=== PATIENT | male | born 1975 | race Caucasian/White ===

== ENCOUNTER 2016-03-25 21:28 | Emergency (ER) | payer OTHER ==
[~2016-03-25] VITALS: Ht 182.9 cm; Wt 104.2 kg
[2016-03-25 21:34] VITALS: BP 152/95; PULSE 136; O2SAT 98
--- NOTE | 2016-03-25 22:37 | ED.REPORT ---
HPI-General Illness Date of Service Mar 25, 2016 ED Provider: Aguila Zepeda MD Patient is a 40 year old male with a history of alcohol abuse who presents to the ED in alcohol withdrawal, with his last drink at 2pm this afternoon. He presents to the ED hypertensive and tachycardic. The patient typically drinks 750mL of vodka daily. Patient has been a daily drinker since he was in college. He is currently unemployed and is unable to keep down a job. The patient has a known enlarged liver but denies alcoholic cirrhosis. He denies a history of pancreatitis or heart disease. Patient is a former smoker and he denies any drug abuse. Patient states that he feels generally unwell, shaky, nauseated, and that he is dehydrated. He patient has previously withdrawn from alcohol and has never had seizures in the past. Patient has previously been admitted to the hospital due to alcohol withdrawal, with this last admission this past summer at [facility]. He presented to [facility] today because he would to go to go to [facility] [place], as he has previously been to their facility and liked their care. He has spoken to his parents about coordinating for termite helper inpatient treatment after he has been through detox. Nursing Notes Stated Complaint: ALCOHOL WITHDRAWL Chief Complaint: Substance Abuse Nursing Notes Reviewed: Yes Allergies: Coded Allergies: No Known Allergies (Unverified , 03/25/16) Scheduled Ondansetron ODT (Ondansetron ODT) 8 Mg Tab.rapdis 8 MG PO QID General Time Seen by MD: 22:36 Chief Complaint Other (alcohol withdrawal) Hx Obtained From: Patient Arrived By: Walk-in Sudden in Onset?: No Onset Occurred: 9 - 12 hours ago Symptom Duration: Since onset Severity: Current: No pain currently Severity: Maximum: No pain Recent Healthcare: No recent doctor visit, No recent hospitalization Similar Sx Previous: Yes Past Medical History Past Medical History alcohol abuse Denies: Coronary artery disease Denies: Pancreatitis Past Surgical History none reported Smoking History Former Smoker Social History From [place] Alcohol Use: >5 per day Other Social History: Good social support, From out of town Ambulatory Status Independent Review of Systems + feels unwell Full Review of Systems GI: Reports: Nausea, Denies: Vomiting Neurologic: Reports: Shaking, Denies: Seizure Complete sys rev & neg: except as marked. Physical Exam Vital Signs Vital Signs Date Time Temp Pulse Resp B/P Pulse Ox O2 Delivery O2 Flow Rate FiO2 03/26/16 00:52 36.7 124 18 136/73 95 Room Air 03/26/16 00:35 124 18 136/73 95 Room Air 03/26/16 00:30 136/70 03/25/16 21:34 36.7 136 152/95 98 Room Air Initial VS: Reviewed Head / Eyes: Atraumatic, Normocephalic, PERRL ENT: Conjunctiva normal, No scleral icterus Neck: Supple, Full range of motion Respiratory: Breath sounds normal, Clear to auscultation, No respiratory distress Abdomen / GI: Soft, Non-tender, No guarding, No rebound Extremities: Vascular intact, Neuro intact, No swelling Skin: Warm, Dry, No cyanosis General/Constitutional: Awake, Alert, No acute distress Appearance / Presentation: Positive: Obese tremulous and hypertensive Cardiovascular: Regular rhythm, Heart sounds NL Heart Rate / Rhythm: Positive: Tachycardia Neurologic: Oriented X3, Speech NL, No motor deficits, No sensory deficits Psychiatric: Affect NL, Mood NL, No hallucinations Abnormal Thinking / Perception: Negative: Delusions - grandeur, Delusions - paranoid Interpretation & Diagnostics Lab Results Interpretation Result Diagram: 03/25/16 2310 03/25/16 2310 Test 03/25/16 23:10 White Blood Count 5.3th/mm3 (3.8-10.1) Red Blood Count 4.78mil/mm3 (4.40-5.80) Hemoglobin 14.0g/dL (13.8-17.2) Hematocrit 40.1% (41.0-50.0) Mean Corpuscular Volume 83.9fL (81-100) Mean Corpuscular Hemoglobin 29.3pg (27.0-35.0) Mean Corpuscular Hemoglobin Concent 34.9% (32.0-37.0) Red Cell Distribution Width 15.8% (12.3-15.4) Platelet Count 119bil/L (150-400) Neutrophils (%) (Auto) 56.0% (40-74) Lymphocytes (%) (Auto) 32.8% (14-46) Monocytes (%) (Auto) 10.4% (4-12) Eosinophils (%) (Auto) 0.2% (0-5) Basophils (%) (Auto) 0.6% (0-3) Sodium Level 140mEq/L (134-144) Potassium Level 3.5mEq/L (3.5-5.2) Chloride Level 95mEq/L (97-108) Carbon Dioxide Level 25mmol/L (18-29) Blood Urea Nitrogen 6mg/dL (6-24) Creatinine 0.59mg/dL (0.76-1.27) Estimat Glomerular Filtration Rate 160mL/min (>59) Glucose Level 131mg/dL (60-99) Calcium Level 8.6mg/dL (8.5-10.1) Magnesium Level 1.9mg/dL (1.6-2.6) Total Bilirubin 0.8mg/dL (0.0-1.2) Aspartate Amino Transf (AST/SGOT) 169U/L (0-50) Alanine Aminotransferase (ALT/SGPT) 103U/L (0-44) Alkaline Phosphatase 102U/L (25-150) Total Protein 7.8g/dL (6.4-8.4) Albumin 4.3g/dL (3.4-5.0) Lipase 85U/L (13-60) Hold Fountain Top Tube Received (Received) Re-Eval/Medical Decision Med Decision/Clinical Course 40-year-old with chronic alcoholism, drinking alcohol fairly high rate, a fifth of vodka daily. He has had withdrawal in the past without seizures. He has evidence of mild alcoholic hepatitis tonight but no other significant findings on lab. There is no particular barrier to outpatient detox with med support. He has a bed at 1 AM at [facility]. He will be supported with Ativan high-dose protocol. He is discharged to [facility] in stable condition. Time of Eval: 00:27 Patient Status: Condition improved Re-Evaluation/Progress Note: Informed the patient of the results of his labs. He has a bed available at [facility] at 1am. Patient understands and agrees with the plan to be discharged to [facility]. Discharge instructions and follow-up discussed. All questions were addressed. Return to the ED warnings given. Consultation : Call Returned at: 23:00 Note: Spoke with [facility]. They have a bed available for the patient at 1am this morning. Counseled Regarding: Diagnosis, Lab results, Need for follow-up, When/why to return to ED Discharge & Departure Primary Impression: Alcohol withdrawal Complication of substance-induced condition: uncomplicated Qualified Code: F10.230 - Alcohol dependence with withdrawal, uncomplicated Additional Impressions: Alcohol abuse Alcoholic hepatitis Ascites presence: without ascites Qualified Code: K70.10 - Alcoholic hepatitis without ascites Disposition: Home Discharge Condition All VS Reviewed: Yes Condition: Stable Patient Instructions: Abuse of Alcohol (ED), Alcohol Withdrawal (ED) Additional Instructions: Good luck with your withdrawal and recovery. It is critical your stop drinking. Your liver is starting to show signs of wear and tear, and will not survive continued abuse of this level. You will not survive the loss of your liver. Take your meds as directed by crisis staff. Follow-up with your doctor in the office. You may follow up at residency clinic if you need a local physician. Return for any immediate issues. Referrals: [facility] Scribe Attestation Portions of this note were transcribed by Vandana Gupta. I, Dr. Zepeda personally performed the history, physical exam and medical decision-making; I reviewed and confirmed the accuracy of the information in the transcribed note. Signed by: Maryam Eisenberg, 03/26/2016 0028 Aguila Zepeda MD Mar 25, 2016 22:37 Vandana Gupta Mar 25, 2016 22:47
[2016-03-25] MEDS ORDERED: 0.9% Sodium Chloride 1,000 ML IV ONE ×2 (22:42→23:00)
[2016-03-25] MEDS ORDERED: Pantoprazole 4 mg/mL 10 mL Inj IVPUSH ONE (22:45)
[2016-03-25] MEDS ORDERED: Ondansetron 2 mg/mL 2 mL Inj IVPUSH ONE (22:45)
[2016-03-25] MEDS ORDERED: Thiamine Inj 100 MG in Dextrose 5% 50 ML IV ONE (22:45)
[2016-03-25] MEDS ORDERED: LORazepam 2 mg Tablet PO ONE (22:45)
[2016-03-25 23:31] LABS: BASOPHILS % (AUTO) 0.6 % (0-3); EOSINOPHILS % (AUTO) 0.2 % (0-5); MONOCYTES % (AUTO) 10.4 % (4-12); Mean Corpuscular Hemoglobin 29.3 pg (27.0-35.0); Mean Corpuscular Volume 83.9 fL (81-100); Platelet Count 119 bil/L (150-400)
[2016-03-25 23:48] LABS: Magnesium 1.9 mg/dL (1.6-2.6)
[2016-03-26] MEDS ORDERED: _LORazepam 2 MG Tablet PO SCH (00:10)
[2016-03-26] MEDS ORDERED: ONDA8TAB10 PO (00:28)
[2016-03-26 00:30] VITALS: BP 136/70
[2016-03-26] MEDS ORDERED: _Ondansetron ODT 4 mg Tablet PO PRN (00:30)
[2016-03-26 00:35] VITALS: BP 136/73; PULSE 124; RESP 18; O2SAT 95
[2016-03-26] MEDS ORDERED: LORazepam 1 mg Tablet PO ONE (00:45)
[2016-03-26 00:52] VITALS: BP 136/73; PULSE 124; RESP 18; O2SAT 95
== END 2016-03-26 01:23 | disposition home or self-care (01) ==
LOC: SED 21:28
DX: F10.230 Alcohol dependence with withdrawal, uncomplicated (principal); K70.10 Alcoholic hepatitis without ascites; Z87.891 Personal history of nicotine dependence
CPT/HCPCS: 36415; 80053; 83690; 83735; 85025; 96361; 96374; 96375; 99285; J2405; J7030